=== PATIENT | female | born 2000 | race Caucasian/White ===

== ENCOUNTER 2018-11-03 02:02 | Emergency (ER) | payer OTHER ==
--- NOTE | 2018-11-03 02:15 | C.PDOC ---
History Of Present Illness 18 yr old female w/ hx of kidney stones p/w R sided flank pain. Pt notes R sided flank pain feels exactly alike previous kidney stone pain. Pain states pain feels like a throbbing, without radiation. Did not take any medications for the pain. No fall or trauma. No back pain, chest pain or shortness of breath. No vaginal d/c or rash. No constipation / diarrhea or dark or bloody stool. Pain does not feel like a ripping pain and pt does not have htn hx. No midline back pain, hx of IVDU, loss of sensation in legs, enuresis or encoparesis. LMP: early september, normal No other complaints PMD: Artur Urologist: None <Marshal Berman - Last Filed: 11/05/18 13:35> <Rachel Montague - Last Filed: 11/03/18 11:13> <Marshal Berman - Last Filed: 11/05/18 13:35> Time Seen by Provider: 11/03/18 02:12 Chief Complaint (Nursing): Back Pain Past Medical History Vital Signs: Last Vital Signs Temp 98.2 F 11/03/18 06:33 Pulse 80 11/03/18 06:33 Resp 14 11/03/18 06:33 BP 118/83 11/03/18 06:33 Pulse Ox 99 11/03/18 06:33 <Rachel Montague - Last Filed: 11/03/18 11:13> Primary Care Provider: Guanakito Siddiqui Family History: States: Unknown Family Hx - Social History Hx Tobacco Use: No Hx Alcohol Use: No Hx Substance Use: No - Immunization History Hx Tetanus Toxoid Vaccination: No Hx Influenza Vaccination: No Hx Pneumococcal Vaccination: No <Marshal Berman - Last Filed: 11/05/18 13:35> Review Of Systems Constitutional: Negative for: Fever, Chills, Sweats, Weakness, Malaise Eyes: Negative for: Pain, Vision Change ENT: Negative for: Ear Pain, Ear Discharge, Nose Pain, Nose Discharge, Nose Congestion, Mouth Pain, Throat Pain, Throat Swelling Cardiovascular: Negative for: Chest Pain, Palpitations, Orthopnea, Edema Respiratory: Negative for: Cough, Shortness of Breath Gastrointestinal: Negative for: Nausea, Vomiting, Abdominal Pain, Diarrhea, Constipation, Melena, Hematochezia, Hematemesis Genitourinary: Negative for: Dysuria, Frequency, Incontinence, Hematuria, Vaginal Bleeding Musculoskeletal: Positive for: Back Pain. Negative for: Neck Pain, Shoulder Pain, Arm Pain, Hand Pain, Leg Pain Skin: Negative for: Rash, Lesions, Jaundice, Bruising Neurological: Negative for: Weakness, Numbness, Incoordination, Change in Speech <Marshal Berman - Last Filed: 11/05/18 13:35> Physical Exam - Physical Exam Appears: Well, Non-toxic, No Acute Distress Skin: Normal Color, Warm, Dry Head: Atraumatic, Normacephalic, No Tenderness, No Swelling Eye(s): bilateral: Normal Inspection, PERRL, EOMI Ear(s): Bilateral: Normal Nose: Normal Tongue: Normal Appearing Lips: Normal Appearing Teeth: Normal Dentition Throat: Normal, No Erythema, No Exudate Neck: Normal, Supple, Other (no meningeal signs) Cardiovascular: Rhythm Regular, No Friction Rub, No Murmur, No JVD Respiratory: Normal Breath Sounds, No Rales, No Rhonchi, No Stridor, No Wheezing Gastrointestinal/Abdominal: Normal Exam, Soft, No Tenderness Back: Normal Inspection, No CVA Tenderness, No Vertebral Tenderness Extremity: Normal ROM, No Tenderness, No Pedal Edema Neurological/Psych: Oriented x3, Normal Speech, Normal Cognition, Normal Cranial Nerves, No Cerebellar Signs, Normal Motor Gait: Steady <Marshal Berman - Last Filed: 11/05/18 13:35> ED Course And Treatment - Laboratory Results Result Diagrams: 11/03/18 02:40 11/03/18 02:40 Lab Results: Total Bilirubin 0.3 mg/dL (0.2-1.3) 11/03/18 02:40 AST 27 U/L (14-36) 11/03/18 02:40 ALT 34 U/L (9-52) 11/03/18 02:40 Alkaline Phosphatase 68 U/L (38-126) 11/03/18 02:40 Total Protein 7.6 g/dL (6.3-8.3) 11/03/18 02:40 Albumin 4.1 g/dL (3.5-5.0) 11/03/18 02:40 Globulin 3.5 gm/dL (2.2-3.9) 11/03/18 02:40 Albumin/Globulin Ratio 1.2 (1.0-2.1) 11/03/18 02:40 Lipase 69 U/L (23-300) 11/03/18 02:40 Urine Color Yellow (YELLOW) 11/03/18 02:40 Urine Clarity Hazy (Clear) 11/03/18 02:40 Urine pH 5.0 (5.0-8.0) 11/03/18 02:40 Ur Specific [place] 1.028 (1.003-1.030) 11/03/18 02:40 Urine Protein 1+ mg/dL (NEGATIVE) H 11/03/18 02:40 Urine Glucose (UA) Normal mg/dL (Normal) 11/03/18 02:40 Urine Ketones Negative mg/dL (NEGATIVE) 11/03/18 02:40 Urine Blood 3+ (NEGATIVE) H 11/03/18 02:40 Urine Nitrate Negative (NEGATIVE) 11/03/18 02:40 Urine Bilirubin Negative (NEGATIVE) 11/03/18 02:40 Urine Urobilinogen 2.0 mg/dL (0.2-1.0) H 11/03/18 02:40 Ur Leukocyte Esterase Negative Jesus Manuel/uL (Negative) 11/03/18 02:40 Urine RBC (Auto) 1715 /hpf (0-3) H 11/03/18 02:40 Ur Squamous Epith Cells 9 /hpf (0-5) H 11/03/18 02:40 Urine Bacteria Few (<OCC) H 11/03/18 02:40 Urine Yeast (Budding) Occ /hpf (NEGATIVE) H 11/03/18 02:40 <Rachel Montague - Last Filed: 11/03/18 11:13> - Laboratory Results Result Diagrams: 11/03/18 02:40 11/03/18 02:40 <Marshal Berman - Last Filed: 11/05/18 13:35> Medical Decision Making Medical Decision Makin yr old female w/ hx of nephrolithasis p/w similiar back pain as previous kidney stone. On exam, pt in NAD, no CVAT on exam. No midline pain. Unlikely cauda equina given no hx of trauma / fall and no enuresis / encoparesis or saddle anesthesia. Unlikely localized embolus given no palpitations. Unlikely abscess given no IVDU. Unlikely AAA given no tearing nature of pain, age and no hx of htn. Likely kidney stone pain. pending imaging and labs. 1720 R 3 mm stone No UTI on labs, neg LE Endorsed to pt to use otc yeast rx for probably yeast infx and to follow up w/ Urology: Dr. Puente regarding yeast No N/V No infected stone pain well controlled clear for d/c home with return indications and f/u. Pt agreeable to plan <Marshal Berman - Last Filed: 11/05/18 13:35> Disposition <Rachel Montague - Last Filed: 11/03/18 11:13> - Disposition Disposition Time: 06:14 <Marshal Berman - Last Filed: 11/05/18 13:35> - Disposition Referrals: Keagan Puente MD [Staff Provider] [facility] [Outside] Disposition: HOME/ ROUTINE Condition: STABLE Additional Instructions: CHRIS ROBLERO, thank you for letting us take care of you today. Your provider was Marshal Berman and you were treated for BACK PAIN. The emergency medical care you received today was directed at your acute symptoms. If you were prescribed any medication, please fill it and take as directed. It may take several days for your symptoms to resolve. Return to the Emergency Department if your symptoms worsen, do not improve, or if you have any other problems. Please contact your doctor or call one of the physicians/clinics you have been referred to that are listed on the Patient Visit Information form that is included in your discharge packet. Bring any paperwork you were given at discharge with you along with any medications you are taking to your follow up visit. Our treatment cannot replace ongoing medical care by a primary care provider outside of the emergency department. Thank you for allowing the [facility] team to be part of your care today. If you had an X-Ray or CT scan: A Radiologist will review the ED reading if any change in treatment is needed we will contact you. If you had a blood, urine, or wound culture: It will take several days for the results, if any change in treatment is needed we will contact you. If you had an STI test: It will take 48 hours for the results. Please call after 1 week if you have not heard back. Prescriptions: Ibuprofen [Motrin] 400 mg PO Q6H PRN 7 Days #28 tab PRN Reason: Pain, Mild (1-3) oxyCODONE/Acetaminophen [Percocet 5/325 mg Tab] 1 ea PO Q12H PRN 3 Days #6 tab PRN Reason: Pain, Moderate (4-7) oxyCODONE/Acetaminophen [Percocet 5/325 mg Tab] 1 ea PO BID #6 tab Tamsulosin [Flomax] 0.4 mg PO DAILY 7 Days #7 cap Instructions: Kidney Stones (DC), Renal Colic (DC), How to Strain Your Urine Forms: [facility] (Maldivian) - Clinical Impression Clinical Impression: Kidney stone on right side Addendum Addendum: 11/03/18 11:13 Administrative addendum: Patient returned to the ED because Rx for Percocet did not have # of tablets so patient could not fill. Rx re-written. <Rachel Montague - Last Filed: 11/03/18 11:13>
[2018-11-03] MEDS ORDERED: Sodium Chloride 0.9% 1,000 ML IV ONE (02:28)
[2018-11-03] MEDS ORDERED: Sodium Chloride 0.9% 1,000 ML ONE (02:34)
[2018-11-03 02:46] LABS: BASO % 0.5 % (0.0-2.0); EOS # 0.2 K/uL (0.0-0.7); EOS % 2.9 % (0.0-4.0); HEMOGLOBIN 12.3 g/dL (11.0-16.0); LYMPH # 2.7 K/uL (1.0-4.3); LYMPH % 46.3 % (20.0-40.0); MEAN CELL VOLUME 76.9 fL (81.0-99.0); MEAN CORPUSCULAR HEMOGLOBIN 25.5 pg (27.0-31.0); MEAN CORPUSCULAR HGB CONC 33.1 g/dL (33.0-37.0); MEAN PLATELET VOLUME 8.2 fL (7.2-11.7); MONO # 0.6 K/uL (0.0-0.8); MONO % 9.4 % (0.0-10.0); NEUT # 2.4 K/uL (1.8-7.0); NEUT % 40.9 % (50.0-75.0); NRBC % 0.1 % (0.0-2.0); RBC 4.82 Mil/uL (3.80-5.20); RED CELL DISTRIBUTION WIDTH 15.4 % (11.5-14.5); WHITE BLOOD COUNT 5.9 K/uL (4.8-10.8)
[2018-11-03 02:53] LABS: URINE BILIRUBIN NEGATIVE (NEGATIVE); URINE CLARITY Hazy (Clear); URINE COLOR YELLOW (YELLOW); URINE GLUCOSE (UA) Normal (Normal)
[2018-11-03 02:54] LABS: SQUAMOUS EPITHIAL 9 /hpf (0-5); URINE BLOOD 3+ (NEGATIVE); URINE LEUKOCYTE ESTERASE NEGATIVE Leu/uL (Negative); URINE PROTEIN 1+ mg/dL (NEGATIVE)
[2018-11-03 02:55] LABS: ALB/GLOB RATIO 1.2 (1.0-2.1); ALBUMIN 4.1 g/dL (3.5-5.0); ALT/SGPT 34 U/L (9-52); AST/SGOT 27 U/L (14-36); BLOOD UREA NITROGEN 15 mg/dL (7-17); CALCIUM 9.2 mg/dl (8.6-10.4); GFR NON-AFRICAN AMERICAN > 60; LIPASE 69 U/L (23-300); URINE BACTERIA FEW (<OCC)
[2018-11-03] MEDS ORDERED: Morphine 4 MG/ML VIAL ONE (03:24)
[2018-11-03 06:35] VITALS: BP 118/83; PULSE 80; RESP 14; TEMP 98.2; O2SAT 99
--- NOTE | 2018-11-03 11:08 | CT ---
Date of service: 11/03/2018 PROCEDURE: CT abdomen pelvis. HISTORY: Right sided kidney stone like pain COMPARISON: Comparison made with prior CT scan abdomen pelvis 07/29/2015 TECHNIQUE: Contiguous axial images of the abdomen and pelvis performed without oral or intravenous contrast material. Additional 2D sagittal and coronal reformats generated. Radiation dose: Total exam DLP = 935.69 mGy-cm. This CT exam was performed using one or more of the following dose reduction techniques: Automated exposure control, adjustment of the mA and/or kV according to patient size, and/or use of iterative reconstruction technique. FINDINGS: LOWER THORAX: Size within range of normal. No significant pericardial effusion. Tiny hiatal hernia. Lung bases clear without focal consolidation effusion or basilar pneumothorax. LIVER: Liver exhibits normal size and attenuation pattern without mass collection or calcification. GALLBLADDER AND BILE DUCTS: Gallbladder is physiologically distended. No evidence of intraluminal gallbladder calculi. Head PANCREAS: Unremarkable. No mass. No ductal dilatation. SPLEEN: Unremarkable. No splenomegaly. ADRENALS: Slightly nodular appearing left adrenal gland KIDNEYS AND URETERS: There is an approximately 3.3 mm calculus within the distal right ureter above the level of the UVJ with mild right-sided hydronephrosis. Several additional nonobstructing punctate-tiny tiny calculi right kidney the largest in the right upper pole collecting system measuring approximately 3.2 mm and on the left in the midpole collecting system measuring 3.7 mm.. Previously noted distal left ureteral calculi and mild left-sided hydronephrosis no longer seen and resolved respectively. BLADDER: Urinary bladder is incompletely distended with slight thick-walled appearance. Correlation with urinalysis to exclude cystitis. REPRODUCTIVE: Apparent bilateral adnexal cysts. APPENDIX: No evidence of acute appendicitis BOWEL: Evaluation of the bowel is somewhat limited due to the lack of oral contrast material. Stomach is incompletely distended. Visualized loops of small bowel exhibit normal contour and caliber. No evidence of acute mechanical small bowel obstruction. PERITONEUM: Unremarkable. No fluid collection. No free air. Small fat containing umbilical hernia. LYMPH NODES: Unremarkable. No enlarged lymph nodes. VASCULATURE: Unremarkable. No aortic aneurysm. No aortic atherosclerotic calcification or mural plaque present. BONES: Mild very minor multilevel degenerative spondylosis of the lower thoracic and lumbar spine OTHER FINDINGS: None. IMPRESSION: 3.3 mm calculus within the distal right ureter above the level of the UVJ with mild right-sided hydronephrosis. Several additional nonobstructing punctate-tiny tiny calculi right kidney the largest in the right upper pole collecting system measuring approximately 3.2 mm and on the left in the midpole collecting system measuring 3.7 mm.. Previously noted distal left ureteral calculi and mild left-sided hydronephrosis no longer seen and resolved respectively. Bilateral adnexal cysts.
== END 2018-11-03 06:34 | disposition home or self-care (01) ==
LOC: C.ER 02:02
DX: N13.2 Hydronephrosis with renal and ureteral calculous obstruction (principal); Z87.442 Personal history of urinary calculi
CPT/HCPCS: 74176; 80053; 81001; 81025; 83690; 85025; 87086; 96361; 96374; 96375; 96376; 99285; J1885; J2270; J7030